=== PATIENT | female | born 1955 | race Caucasian/White ===

== ENCOUNTER → 2023-12-19 12:19 | Outpatient (REF) | payer MEDICARE, OTHER, SELFPAY | LOC: RAD 12:19 | PROVIDERS: ATTENDING PHYSICIAN Internal Medicine Interventional Cardiology; FAMILY PHYSICIAN Internal Medicine | DX: I65.23 Occlusion and stenosis of bilateral carotid arteries (principal) | CPT/HCPCS: 93880 ==

== ENCOUNTER → 2024-01-09 08:47 | Outpatient (REF) | payer MEDICARE, OTHER, SELFPAY | LOC: HWRAD 08:47 | PROVIDERS: ATTENDING PHYSICIAN Urology; FAMILY PHYSICIAN Internal Medicine | DX: N31.9 Neuromuscular dysfunction of bladder, unspecified (principal); N32.81 Overactive bladder; N30.10 Interstitial cystitis (chronic) without hematuria | CPT/HCPCS: 76770; 76856 ==

== ENCOUNTER → 2024-03-30 10:30 | Outpatient (REF) | payer MEDICARE, OTHER, SELFPAY ==
[2024-03-30 11:37] LABS: Urine Albumin Negative (Neg - Trace); Urine Bilirubin Negative (Negative); Urine Character Clear (Clear); Urine Color Yellow; Urine Glucose Negative (Negative); Urine Ketone Negative (Negative); Urine Leukocyte Negative (Negative); Urine Nitrite Negative (Negative); Urine Occult Blood Negative (Negative); Urine Urobilinogen Negative (Neg - 1+)
== END ==
LOC: HWLAB 10:30
PROVIDERS: ATTENDING PHYSICIAN Urology; FAMILY PHYSICIAN Internal Medicine
DX: N30.10 Interstitial cystitis (chronic) without hematuria (principal)
CPT/HCPCS: 81003

== ENCOUNTER → 2024-08-18 08:19 | Outpatient (REF) | payer MEDICARE, OTHER, SELFPAY ==
[2024-08-18 09:53] LABS: % Basophils 0.7 % (0-2); % Eosinophils 3.4 % (0-6); % Immature Granulocytes 0.2 % (0-0.5); % Lymphocytes 33.9 % (20.5-51.1); % Monocytes 9.2 % (1.7-9.3); % Neutrophils 52.6 % (42.2-75.2); Absolute Eosinophils 0.2 10^3/uL (0-0.7); Absolute Lymphocytes 1.5 10^3/uL (1.2-3.4); Absolute Monocytes 0.4 10^3/uL (0.1-0.6); Absolute Neutrophils 2.3 10^3/uL (1.4-6.5); Hematocrit 40.1 % (37.0-47.0); Hemoglobin 13.3 g/dL (12.0-16.0); Mean Corp Hgb Conc. 33.2 g/dL (33.0-37.0); Mean Corpuscular Hgb 30.9 pg (27.0-31.0); Mean Corpuscular Volume 93.3 fL (81.0-99.0); Mean Platelet Volume 9.6 fL (7.4-10.4); Nucleated Red Blood Cells % 0 %; Platelet Count 244 10^3/uL (130-400); White Blood Cell Count 4.4 10^3/uL (4.8-10.8)
[2024-08-18 10:42] LABS: ALT (SGPT) 31 U/L (0-35); AST (SGOT) 30 U/L (14-36); Albumin 4.1 g/dl (3.5-5.0); Alkaline Phosphatase 90 U/L (38-126); Blood Urea Nitrogen 19 mg/dl (7-17); Calcium 9.6 mg/dl (8.4-10.2); Carbon Dioxide 24 mmol/L (22-30); Chloride 107 mmol/L (98-107); Glucose 96 mg/dl (70-99); HDL Cholesterol 59 mg/dl; LDL Cholesterol, Calculated 109 mg/dl; Potassium 4.5 mmol/L (3.5-5.1); Sodium 142 mmol/L (135-145); Total Bilirubin 0.4 mg/dl (0.2-1.3); Total Cholesterol 184 mg/dl (50-199); Total Protein 8.1 g/dl (6.3-8.2); Triglyceride 83 mg/dl (10-149); Very Low Density Lipoprotein 16 mg/dl (0-30); eGFR > 60.00
[2024-08-18 10:48] LABS: Vitamin D, 25-OH*** 39.7 ng/mL (30-80)
[2024-08-18 11:21] LABS: Hepatitis C Antibody Negative (Negative)
[2024-08-18 12:04] LABS: Glycohemoglobin (HgbA1c) 5.8 % (4.0-5.6)
== END ==
LOC: HWLAB 08:19
PROVIDERS: ATTENDING PHYSICIAN Internal Medicine
DX: Z13.6 Encounter for screening for cardiovascular disorders (principal); Z98.2 Presence of cerebrospinal fluid drainage device; Z13.1 Encounter for screening for diabetes mellitus; E55.9 Vitamin D deficiency, unspecified; Z11.59 Encounter for screening for other viral diseases; K52.9 Noninfective gastroenteritis and colitis, unspecified
CPT/HCPCS: 36415; 80053; 80061; 82306; 83036; 85025; 86803

== ENCOUNTER → 2024-11-09 12:04 | Outpatient (REF) | payer MEDICARE, OTHER, SELFPAY | LOC: HWWDC 12:04 | PROVIDERS: ATTENDING PHYSICIAN Internal Medicine Critical Care Medicine; FAMILY PHYSICIAN Internal Medicine | DX: Z12.31 Encounter for screening mammogram for malignant neoplasm of breast (principal); Z87.891 Personal history of nicotine dependence | CPT/HCPCS: 71271; 77063; 77067 ==

== ENCOUNTER → 2025-01-11 10:25 | Outpatient (REF) | payer MEDICARE, OTHER, SELFPAY | LOC: PAVMRI 10:25 | PROVIDERS: ATTENDING PHYSICIAN Internal Medicine | DX: S83.522A Sprain of posterior cruciate ligament of left knee, initial encounter (principal) | CPT/HCPCS: 73721; 76014; 76015 ==

== ENCOUNTER → 2025-04-14 12:46 | Outpatient (REF) | payer MEDICARE, OTHER, SELFPAY ==
[2025-04-14 13:42] LABS: Urine Character Cloudy (Clear)
[2025-04-14 15:00] LABS: Urine Urothelial Cell 0-2 /LPF (FEW)
[2025-04-14 15:01] LABS: Urine Red Blood Cell 16-20 /HPF (0-2); Urine White Cell 16-20 /HPF (0-5)
== END ==
LOC: CLAB 12:46
PROVIDERS: ATTENDING PHYSICIAN Urology
DX: R31.29 Other microscopic hematuria (principal)
CPT/HCPCS: 81003; 81015; 87086

== ENCOUNTER → 2025-05-04 13:01 | Outpatient (REF) | payer MEDICARE, OTHER, SELFPAY ==
[2025-05-04 16:03] LABS: Hematocrit 41.1 % (37.0-47.0); Hemoglobin 13.4 g/dL (12.0-16.0); Mean Corp Hgb Conc. 32.6 g/dL (33.0-37.0); Mean Corpuscular Volume 92.8 fL (81.0-99.0); Nucleated Red Blood Cells % 0 %; Platelet Count 288 10^3/uL (130-400); Red Cell Dist. Width 13.3 % (11.5-14.5)
[2025-05-04 16:06] LABS: ALT (SGPT) 27 U/L (0-35); AST (SGOT) 25 U/L (14-36); Albumin 4.3 g/dl (3.5-5.0); Alkaline Phosphatase 95 U/L (38-126); Blood Urea Nitrogen 20 mg/dl (7-17); Calcium 9.7 mg/dl (8.4-10.2); Carbon Dioxide 26 mmol/L (22-30); Chloride 111 mmol/L (98-107); Glucose 99 mg/dl (70-99); HDL Cholesterol 58 mg/dl; LDL Cholesterol, Calculated 131 mg/dl; Potassium 4.2 mmol/L (3.5-5.1); Sodium 141 mmol/L (135-145); Total Protein 8.8 g/dl (6.3-8.2); Very Low Density Lipoprotein 20 mg/dl (0-30); eGFR > 60.00
[2025-05-04 16:24] LABS: Vitamin D, 25-OH*** 29.3 ng/mL (30-80)
[2025-05-04 16:57] LABS: Vitamin B12 373 pg/ml (239-931)
[2025-05-05 11:42] LABS: Lyme Antibody Screen, EIA Negative (Negative)
== END ==
LOC: HWLAB 13:01
PROVIDERS: ATTENDING PHYSICIAN Nurse Practitioner Primary Care
DX: I10 Essential (primary) hypertension (principal); E78.2 Mixed hyperlipidemia; E03.8 Other specified hypothyroidism; E55.9 Vitamin D deficiency, unspecified; G62.9 Polyneuropathy, unspecified; I27.20 Pulmonary hypertension, unspecified
CPT/HCPCS: 36415; 80053; 80061; 82306; 82607; 84155; 84165; 84443; 85025; 86618

== ENCOUNTER → 2025-05-06 13:59 | Outpatient (REF) | payer MEDICARE, OTHER, SELFPAY | LOC: HWRAD 13:59 | PROVIDERS: ATTENDING PHYSICIAN Obstetrics & Gynecology Gynecology; FAMILY PHYSICIAN Nurse Practitioner Primary Care | DX: E04.1 Nontoxic single thyroid nodule (principal) | CPT/HCPCS: 76536 ==

== ENCOUNTER → 2025-05-28 10:49 | Outpatient (REF) | payer MEDICARE, OTHER, SELFPAY ==
[2025-05-28 16:08] LABS: Urine Character Cloudy (Clear)
[2025-05-28 17:09] LABS: Urine Squamous Cell 0-2 /LPF (Few)
[2025-05-28 17:10] LABS: Urine Red Blood Cell 0-2 /HPF (0-2); Urine White Cell 0-2 /HPF (0-5)
== END ==
LOC: HWLAB 10:49
PROVIDERS: ATTENDING PHYSICIAN Nurse Practitioner Primary Care
DX: D47.2 Monoclonal gammopathy (principal); I10 Essential (primary) hypertension
CPT/HCPCS: 36415; 81003; 81015; 82570; 82784; 83521; 84155; 84156; 84165; 86334

== ENCOUNTER → 2025-07-12 14:02 | Outpatient (REF) | payer MEDICARE, OTHER, SELFPAY | LOC: CLAB 14:02 | PROVIDERS: ATTENDING PHYSICIAN Urology | DX: N32.9 Bladder disorder, unspecified (principal) | CPT/HCPCS: 88112 ==

== ENCOUNTER → 2025-08-25 08:11 | Outpatient (REF) | payer MEDICARE, OTHER, SELFPAY ==
[2025-08-25 09:35] LABS: Hematocrit 41.6 % (37.0-47.0); Hemoglobin 13.1 g/dL (12.0-16.0); Mean Corp Hgb Conc. 31.5 g/dL (33.0-37.0); Mean Corpuscular Volume 95.0 fL (81.0-99.0); Nucleated Red Blood Cells % 0 %; Platelet Count 239 10^3/uL (130-400); Red Cell Dist. Width 13.3 % (11.5-14.5)
[2025-08-25 09:42] LABS: ALT (SGPT) 20 U/L (0-35); AST (SGOT) 20 U/L (14-36); Albumin 3.8 g/dl (3.5-5.0); Alkaline Phosphatase 105 U/L (38-126); Blood Urea Nitrogen 19 mg/dl (7-17); Calcium 9.8 mg/dl (8.4-10.2); Carbon Dioxide 28 mmol/L (22-30); Chloride 107 mmol/L (98-107); Glucose 95 mg/dl (70-99); HDL Cholesterol 52 mg/dl; LDL Cholesterol, Calculated 100 mg/dl; Potassium 4.1 mmol/L (3.5-5.1); Sodium 136 mmol/L (135-145); Total Protein 8.1 g/dl (6.3-8.2); Very Low Density Lipoprotein 13 mg/dl (0-30); eGFR > 60.00
[2025-08-25 10:40] LABS: Vitamin D, 25-OH*** 24.3 ng/mL (30-80)
[2025-08-25 12:52] LABS: Vitamin B12 459 pg/ml (239-931)
== END ==
LOC: HWLAB 08:11
PROVIDERS: ATTENDING PHYSICIAN Nurse Practitioner Primary Care
DX: D47.2 Monoclonal gammopathy (principal); R79.89 Other specified abnormal findings of blood chemistry; E78.2 Mixed hyperlipidemia; I10 Essential (primary) hypertension; M85.9 Disorder of bone density and structure, unspecified
CPT/HCPCS: 36415; 80053; 80061; 82306; 82607; 85025

== ENCOUNTER → 2025-08-27 14:50 | Outpatient (REF) | payer MEDICARE, OTHER, SELFPAY ==
[2025-08-27 16:36] LABS: Iron 56 ug/dl (37-170)
[2025-08-27 16:45] LABS: Total Iron Binding Capacity 300 ug/dl (265-497)
[2025-08-27 17:12] LABS: Ferritin 32.1 ng/ml (11.1-264.0)
== END ==
LOC: RAD 14:50
PROVIDERS: ATTENDING PHYSICIAN Nurse Practitioner Primary Care
DX: M79.89 Other specified soft tissue disorders (principal); M79.604 Pain in right leg; M79.605 Pain in left leg; K92.2 Gastrointestinal hemorrhage, unspecified
CPT/HCPCS: 36415; 82085; 82550; 82728; 83540; 83550; 83880; 86618; 93970